=== PATIENT | female | born 1995 ===

== ENCOUNTER 2019-08-13 01:13 | Outpatient (CLI) | payer OTHER ==
[2019-08-13 02:34] VITALS: BP 121/70
== END 2019-08-13 04:00 | disposition home or self-care (01) ==
LOC: TRG 01:13
PROVIDERS: ATTEND Obstetrics & Gynecology
DX: O26.893 Other specified pregnancy related conditions, third trimester (principal); O46.93 Antepartum hemorrhage, unspecified, third trimester; R51 Headache; Z3A.39 39 weeks gestation of pregnancy
CPT/HCPCS: 59025

== ENCOUNTER 2019-08-24 11:32 | Outpatient (CLI) | payer OTHER ==
[2019-08-24 12:49] VITALS: BP 112/68
== END 2019-08-24 13:21 | disposition home or self-care (01) ==
LOC: TRG 11:32
PROVIDERS: ATTEND Obstetrics & Gynecology
DX: O47.1 False labor at or after 37 completed weeks of gestation (principal); Z3A.40 40 weeks gestation of pregnancy
CPT/HCPCS: 59025